=== PATIENT | female | born 1980 | race Caucasian/White ===

== ENCOUNTER 2016-11-01 10:18 | Observation (INO) | payer OTHER ==
--- NOTE | 2016-11-01 11:08 | CPEKG ---
Heart Rate: 111 RR Interval: 541 P-R Interval: 124 QRSD Interval: 92 QT Interval: 324 QTC Interval: 441 P [place]: 89 QRS [place]: 21 T Wave [place]: 42 EKG Severity - OTHERWISE NORMAL ECG - EKG Impression: SINUS TACHYCARDIA Electronically Signed By: Melchor Mcgregor 01-Nov-2016 13:09:12
[2016-11-01 11:32] LABS: % IMMATURE GRANULYOCYTES 0.3 % (0.0-1.1); ABSOLUTE IMMATURE GRANULOCYTES 0.02 10^3/uL (0.00-0.10); ADD DIFF? NO; ADD MORPH? NO; ADD SCAN? NO; ATYPICAL LYMPHOCYTE FLAG 10 (0-99); FRAGMENT RBC FLAG 0 (0-99); HEMATOCRIT 46.5 % (38.0-47.0); HEMOGLOBIN 15.6 g/dL (12.6-16.3); LEFT SHIFT FLG 0 (0-99); LIPEMIA HEMOLYSIS FLAG 80 (0-99); MEAN CELL HEMOGLOBIN 30.7 pg (27.9-34.1); MEAN CELL HEMOGLOBIN CONCENTR. 33.5 g/dL (32.4-36.7); MEAN CELL VOLUME 91.5 fL (81.5-99.8); MEAN PLATELET VOLUME 9.8 fL (8.7-11.7); PLATELET CLUMPS FLAG 0 (0-99); PLATELET COUNT 311 10^3/uL (150-400); RED BLOOD CELL COUNT 5.08 10^6/uL (4.18-5.33); RED CELL DISTRIBUTION WIDTH 12.5 % (11.5-15.2)
[2016-11-01 11:55] LABS: ANION GAP 21 mEq/L (8-16); CARBON DIOXIDE 12 mEq/l (22-31); CHLORIDE 106 mEq/L (97-110); CREATININE 0.7 mg/dL (0.6-1.0); GLOMERULAR FILTRATION RATE > 60; GLUCOSE 75 mg/dL (70-100); POTASSIUM 4.5 mEq/L (3.5-5.2); SODIUM 139 mEq/L (134-144)
[2016-11-01 12:06] LABS: TROPONIN I < 0.012 ng/mL (0.000-0.034)
[2016-11-01] MEDS ORDERED: NS 1,000 ML IV ONE ×2 (12:44→13:54)
--- NOTE | 2016-11-01 13:14 | EDPHY ---
H & P Time Seen by Provider: 11/01/16 12:15 HPI/ROS: CHIEF COMPLAINT: Burning in the chest HISTORY OF PRESENT ILLNESS: Started 90 minutes prior to my evaluation, radiates the left arm. Patient states she is feeling a little bit of associated weakness and dizziness. She has had decreased oral intake. Burning in her chest is mild and was worse earlier. It did not radiate to her back or her jaw. Not associated with weakness or numbness in extremities, difficulty with speech or balance, or vertigo. Not exertional. REVIEW OF SYSTEMS: Eye: no change in vision ENT: no sore throat Cardiac: HPI Pulmonary: no cough or SOB Abdomen: no vomiting, diarrhea, abdominal pain Musculoskeletal: Some mild ongoing back and neck pain which is stable Skin: no rash Neuro: no headache Constitutional: no fever : no urinary symptoms A comprehensive 10 point review of systems is otherwise negative aside from elements mentioned in the history of present illness. PAST MEDICAL HISTORY: Previous cervical and thoracic spine fusion surgeries, electric stimulator for gastroparesis. Knee surgery. C5-6, C6-7, T9-10, L4-5. Social history: Lives in [facility] and was on her way to [place] today, denies drugs or alcohol. General Appearance: Alert and conversant, cooperative. Eyes: No scleral icterus. ENT, Mouth: Normal mucous membranes. Respiratory: Normal respiratory effort, breath sounds equal, lungs are clear to auscultation. Cardiovascular: Regular rate and rhythm. Gastrointestinal: Abdomen is soft and non tender. Neurological: Alert and oriented x3. Normally conversant. Face symmetric, normal movement and sensation in all extremities. Skin: Warm and dry, no rashes. Musculoskeletal: No peripheral edema and no joint swelling. Psychiatric: Not agitated. Flat affect. Emergency Department course/MDM: 1350: Labs reviewed, patient denies aspirin, and negative ethanol. Unclear why she is acidotic. Remains tachycardic with heart rate 120 to 130. Plan for IV fluid resuscitation, admission to hospitalist for further evaluation of chest pain and lab abnormalities. No Percocet today. 1400: Jerrell Phelps. Smoking Status: Never smoked Constitutional: Initial Vital Signs Temperature (C) 36.7 C 11/01/16 10:25 Heart Rate 120 H 11/01/16 10:25 Respiratory Rate 16 11/01/16 10:25 Blood Pressure 132/80 H 11/01/16 10:25 O2 Sat (%) 98 11/01/16 10:25 O2 Delivery Mode Room Air Allergies/Adverse Reactions: amoxicillin Allergy (Mild, Verified 11/01/16 10:26) GI ketorolac tromethamine [From Toradol] Allergy (Verified 11/01/16 10:26) GI Penicillins Allergy (Verified 11/01/16 10:26) GI Home Medications: Medication Instructions Recorded Baclofen [Baclofen 20 mg (*)] 20 mg PO BID PRN 11/01/16 Diazepam [Valium 5 MG (*)] 5 mg PO BID PRN 11/01/16 oxyCODONE HCL/ACETAMINOPHEN 1 each PO BID PRN 11/01/16 [Percocet 10-325 mg Tablet] Medical Decision Making - Diagnostics EKG Interpretation: 12-lead EKG interpreted by me; official reading is in trace master. My interpretation is sinus rhythm without ischemic changes. Tachycardiac. Imaging Results: Imaging Impressions Chest X-Ray 11/01/16 12:44 Impression: Clear lungs. No acute process. Differential Diagnosis: Differential diagnosis considered for chest pain including but not limited to myocardial ischemia, aortic dissection, pericarditis, pulmonary embolus, chest wall pain, pleural inflammation and pulmonary infectious causes. - Data Points Laboratory Results: Laboratory Results 11/01/16 11:20 11/01/16 11:20 11/01/16 11/01/16 11/01/16 13:10 11:20 11:20 WBC RBC Hgb Hct MCV MCH MCHC RDW Plt Count MPV Neut % (Auto) Lymph % (Auto) [place] % (Auto) Eos % (Auto) Baso % (Auto) Nucleat RBC Rel Count Absolute Neuts (auto) Absolute Lymphs (auto) Absolute Monos (auto) Absolute Eos (auto) Absolute Basos (auto) Absolute Nucleated RBC Immature Gran % Immature Gran # D-Dimer < 0.27 ug/mLFEU ug/mLFEU (0.00-0.50) VBG pH 7.25 L (7.31-7.42) Sodium Potassium Chloride Carbon Dioxide Anion Gap BUN Creatinine Estimated GFR Glucose Calcium Troponin I Ethyl Alcohol < 10 mg/dL mg/dL (0-10) 11/01/16 11/01/16 11:20 11:20 WBC 6.55 10^3/uL 10^3/uL (3.80-9.50) RBC 5.08 10^6/uL 10^6/uL (4.18-5.33) Hgb 15.6 g/dL g/dL (12.6-16.3) Hct 46.5 % % (38.0-47.0) MCV 91.5 fL fL (81.5-99.8) MCH 30.7 pg pg (27.9-34.1) MCHC 33.5 g/dL g/dL (32.4-36.7) RDW 12.5 % % (11.5-15.2) Plt Count 311 10^3/uL 10^3/uL (150-400) MPV 9.8 fL fL (8.7-11.7) Neut % (Auto) 62.8 % % (39.3-74.2) Lymph % (Auto) 25.2 % % (15.0-45.0) [place] % (Auto) 10.8 % % (4.5-13.0) Eos % (Auto) 0.3 % L % (0.6-7.6) Baso % (Auto) 0.6 % % (0.3-1.7) Nucleat RBC Rel Count 0.0 % % (0.0-0.2) Absolute Neuts (auto) 4.11 10^3/uL 10^3/uL (1.70-6.50) Absolute Lymphs (auto) 1.65 10^3/uL 10^3/uL (1.00-3.00) Absolute Monos (auto) 0.71 10^3/uL 10^3/uL (0.30-0.80) Absolute Eos (auto) 0.02 10^3/uL L 10^3/uL (0.03-0.40) Absolute Basos (auto) 0.04 10^3/uL 10^3/uL (0.02-0.10) Absolute Nucleated RBC 0.00 10^3/uL 10^3/uL (0-0.01) Immature Gran % 0.3 % % (0.0-1.1) Immature Gran # 0.02 10^3/uL 10^3/uL (0.00-0.10) D-Dimer VBG pH Sodium 139 mEq/L mEq/L (134-144) Potassium 4.5 mEq/L mEq/L (3.5-5.2) Chloride 106 mEq/L mEq/L (97-110) Carbon Dioxide 12 mEq/l L mEq/l (22-31) Anion Gap 21 mEq/L H mEq/L (8-16) BUN 12 mg/dL mg/dL (7-23) Creatinine 0.7 mg/dL mg/dL (0.6-1.0) Estimated GFR > 60 Glucose 75 mg/dL mg/dL (70-100) Calcium 10.0 mg/dL mg/dL (8.5-10.4) Troponin I < 0.012 ng/mL ng/mL (0.000-0.034) Ethyl Alcohol Medications Given: Discontinued Medications Sodium Chloride (Ns) 1,000 mls @ 0 mls/hr IV EDNOW ONE; Wide Open PRN Reason: Protocol Stop: 11/01/16 12:45 Last Admin: 11/01/16 12:49 Dose: 1,000 mls Sodium Chloride (Ns) 1,000 mls @ 0 mls/hr IV EDNOW ONE; Wide Open PRN Reason: Protocol Stop: 11/01/16 13:55 Last Admin: 11/01/16 14:14 Dose: 1,000 mls Departure - Departure Disposition: [facility] Inpatient Acute Clinical Impression: Tachycardia Chest pain Qualifiers: Chest pain type: unspecified Qualified Code(s): R07.9 - Chest pain, unspecified Condition: Fair
[2016-11-01 13:18] LABS: ETHANOL SERUM < 10 mg/dL (0-10)
[2016-11-01] MEDS ORDERED: ACETAMINOPHEN 325 MG TAB PO PRN (14:43)
[2016-11-01] MEDS ORDERED: PROMETHAZINE HCL 25 MG/ML INJ IVP PRN (14:43)
[2016-11-01] MEDS ORDERED: LORazepam 0.5 MG TAB PO PRN (14:43)
[2016-11-01] MEDS ORDERED: ONDANSETRON DISINTEGRATING 4 MG TAB PO PRN (14:43)
[2016-11-01] MEDS ORDERED: oxyCODONE IR 5 MG TAB PO PRN ×2 (14:43→17:42)
[2016-11-01] MEDS ORDERED: ONDANSETRON 4 MG/2 ML VIAL IVP PRN (14:43)
[2016-11-01] MEDS ORDERED: BACLOFEN 20 MG TAB PO PRN (16:56)
[2016-11-01] MEDS ORDERED: NON-FORMULARY NEW DRUG (Oxycodone Hcl/Acetaminophen [Percocet 10-325 Mg Tablet] 1 EACH) PO PRN (16:56)
[2016-11-01] MEDS ORDERED: DIAZEPAM 5 MG TAB PO PRN (16:56)
--- NOTE | 2016-11-01 17:23 | ASMTCMCOM ---
CM Note CM Note Notes: chart reviewed. Spoke with CM in ER as patient has her pet in car. Patient reports she was driving from her home in [place] to [facility] to visist [facility] and changed her mind. She was heading back home when she began to have symptoms of chest pain leading her here. She has a flat affect and is inconsistent in her responses. Her friend from [place] came to see her in the ER but left. She called him but unclear as to when or how as her phone is lost. We contacted animal control and the [employer] ([phone]) where her pet halye be kept. She must be in communication with them (Jesenia said fees are attached for the dogs care and recovery but they are willing to work with her) within 5 days or they start adoption processes. CM to follow. Date Signed: 11/01/2016 05:22 PM Electronically Signed By:Jacquelin De La Torre RN
[2016-11-01] MEDS ORDERED: OXYCODONE/APAP 5/325 TAB PO PRN (17:41)
--- NOTE | 2016-11-01 17:50 | GHP ---
[f rep st] HISTORY AND PHYSICAL DATE OF ADMISSION: 11/01/2016 CHIEF COMPLAINT: Chest pain. HISTORY: This is a 36-year-old female, who has a past medical history of multiple cervical and thora cic spine fusions as well as chronic pain with continuous narcotic use and dependence, who presents w ith approximately 90 minutes of chest pain that began this morning. The patient is a somewhat challe nging historian in that she is very flat and guarded in conversation. She notes that this morning pa in began in her chest, it then radiated to her left arm, left neck and left leg. She notes again it lasted about 90 minutes and resolved on its own without any intervention. At this time, she states s he has no pain whatsoever. She notes she has had similar pains in the past but never quite this faisal re. She states this is due to an underlying heart arrhythmia, which she states is called IST. She s tates she was previously followed by a economics teacher but then the medications were no longer working s o she has not seen him in years. She also asks why she has been placed in the "psych carrero", though i t was explained to her that she is not in a psychiatric carrero but is actually in the medical care for workup of chest pain. She also acknowledges that she has had at least 2 stress tests in the past. S he states both of those were several years ago and were both normal. PAST MEDICAL HISTORY: Includes 1. Chronic pain with continuous narcotic use and dependency. 2. Gastroparesis. 3. Anxiety. PAST SURGICAL HISTORY: Include 1. Multiple level cervical and lumbar fusion surgeries. 2. Knee surgery. 3. Electrical stimulator for gastroparesis. FAMILY HISTORY: Father at age 69 of CHF. He also had hypertension, hyperlipidemia, and diabete s. Otherwise unremarkable. SOCIAL HISTORY: Patient is a nonsmoker. She denies any significant alcohol or drug use. REVIEW OF SYSTEMS: A 10-point review of systems obtained and negative, except as per HPI. MEDICATIONS: Include. 1. Percocet. 2. Valium. 3. Baclofen. ALLERGIES: Include penicillins. PHYSICAL EXAMINATION: VITAL SIGNS: 116/70, heart rate is 110, respiratory rate is 20, O2 sats 96% o n room air. Temperature is 36.8. GENERAL APPEARANCE: Well-developed/well-nourished female. She is awake and alert. She is anxious appearing. EYES: Anicteric. HENT: Oropharynx clear. CARDIOVASC ULAR: Tachycardic, regular, no MRG. PULMONARY: CTA bilaterally. ABDOMEN: Soft, nontender. Posit jaja bowel sounds. EXTREMITIES: No clubbing, cyanosis, or edema. SKIN: Warm dry well perfused. NE URO/PSYCH: Oriented and appropriate, pleasant. CLINICAL DATA: Labs reviewed. CBC is unremarkable. D-dimer is negative. Venous gas was 7.25, anio n gap of 21, bicarb of 12. Troponin negative. Blood alcohol level is negative. EKG personally reviewed and interpreted shows sinus tachycardia, no ischemic changes. Chest x-ray, p ersonally reviewed and interpreted, shows no acute process. ASSESSMENT/PLAN: This is a 36-year-old female, past medical history of anxiety and chronic pain pres enting with chest pain. 1. Chest pain. Again, this was brief and sounds to be atypical in nature. Query if related to anxi ety which she does clearly seem quite anxious on exam. She does remain tachycardic however. Plan wi ll be to monitor on telemetry with serial troponins. We will obtain a stress test in the morning and unless her tachycardia resolves, suspect she will need to be with Nuclear Medicine. 2. Tachycardia. Again patient states she has an arrhythmia that is called IST. I believe what she is referring to his inappropriate sinus tachycardia, which makes sense based on her presentation. At this point, again workup is as per above. We will continue to monitor. 3. Chronic pain, continuous narcotic use and dependency. We will continue her outpatient medication s. She currently has no further chest pain. 4. Gastroparesis. The patient with an implanted electrical stimulator. Query if this is related to her chronic narcotic use. DISPOSITION: Observation status. I suspect she will need less than 48 hours stay for evaluation and management of above. Patient is new to my care. Old records reviewed. Summary is as per HPI and past medical history. C are plan reviewed with ER physician, including plans for workup of chest pain. /[id number]/MODL
[2016-11-01 18:10] LABS: COLOR RED; LEUKOCYTE ESTERASE,URINE NEGATIVE (NEGATIVE); NITRITE,URINE NEGATIVE (NEGATIVE)
[2016-11-01 18:29] LABS: PHENCYCLIDINE URINE BCH < 6 ng/ml (NEGATIVE); PHENCYCLIDINE URINE BCH NEGATIVE (NEGATIVE); TETRAHYDROCANNABINOL URINE < 5 ng/mL (NEGATIVE); TETRAHYDROCANNABINOL URINE NEGATIVE (NEGATIVE)
[2016-11-01 18:54] LABS: BACTERIA 3+ /hpf (NONE SEEN); MUCUS 1+ /lpf (NONE-1+); RBC,URINE 50-182 /hpf (0-3); WBC,URINE 25-50 /hpf (0-3); YEAST PRESENT /hpf (NONE SEEN)
[2016-11-01] MEDS: NS 1,000 ML IV SCH (21:20)
[2016-11-02] MEDS: NS 1,000 ML IV SCH (04:00)
[2016-11-02 07:26] LABS: ANION GAP 13 mEq/L (8-16); CALCIUM 8.6 mg/dL (8.5-10.4); CARBON DIOXIDE 14 mEq/l (22-31); CHLORIDE 112 mEq/L (97-110); CREATININE 0.6 mg/dL (0.6-1.0); GLOMERULAR FILTRATION RATE > 60; GLUCOSE 71 mg/dL (70-100); POTASSIUM 3.8 mEq/L (3.5-5.2); SODIUM 139 mEq/L (134-144)
[2016-11-02 07:39] VITALS: TEMP 98.1
--- NOTE | 2016-11-02 08:58 | CPEKG ---
Heart Rate: 105 RR Interval: 571 P-R Interval: 108 QRSD Interval: 90 QT Interval: 336 QTC Interval: 445 P [place]: 79 QRS [place]: -1 T Wave [place]: 36 EKG Severity - OTHERWISE NORMAL ECG - EKG Impression: SINUS TACHYCARDIA Electronically Signed By: Jose Fortune 02-Nov-2016 11:21:57
[2016-11-02] MEDS ORDERED: REGADENOSON 0.4 MG/5 ML SYR IVP ONE (09:48)
--- NOTE | 2016-11-02 10:29 | PDCARST ---
CAR Stress Test Results Type of Stress Test: Nuclear TM stress test Indication: cp Description of Procedure: After informed consent was obtained, pt was exercised according to Eric Protocol. Monitoring was performed with standard stress brake tester electrode placement. Vital signs were monitored according to protocol throughout the procedure. STRESS EKG AND HEMODYNAMIC DATA. Exercise time: 5: 30 min. This is equivalent to: 6.6 METS. Resting heart rate: 107 bpm. Resting blood pressure: 110/76 mmHg. Resting O2 saturation: 94 %. Peak heart rate: 162 bpm. This is 88 % of age predicted maximum heart rate response. Peak blood pressure: 130/80 mmHg. Exercise O2: 100 %. Arrhythmias: None. Reason for termination: The test was stopped due to maximal effort. Symptoms: The patient experienced no typical symptoms of angina during stress or recovery. STRESS TEST ANALYSIS. Baseline ECG: Sinus tach/short ND. Stress ECG: Sinus tach. No exercise induced ischemic ECG changes. Rhythm: No arrhythmias noted during exercise and recovery. Blood pressure: normal blood pressure response to exercise. Exercise tolerance: The patient average exercise tolerance adjusted for age and gender. Symptoms: No exercise induced symptoms. Impression: Stress ECG negative for ischemia. The Giles Treadmill Score is 5 consistent with low cardiovascular risk (<1% annual mortality). Conclusion: Await nuclear images.
[2016-11-02 13:17] VITALS: BP 117/76; PULSE 112; RESP 20; O2SAT 100
--- NOTE | 2016-11-02 14:39 | ASDISCHSUM ---
Discharge Information Plan Status:Home with No Needs Medically Cleared to Leave: Discharge Date:11/02/2016 01:30 PM CM D/C Disposition:Home, Routine, Self-Care ADT D/C Disposition:Home, Routine, Self-Care Projected Discharge Date:11/02/2016 01:30 PM Transportation at D/C:Self Discharge Delay Reason: Follow-Up Date:11/02/2016 01:30 PM Discharge Slot: Final Diagnosis: Placement Information Patient Contact Information Contact Name:AIME Relationship:Friend Address: Work Phone: City: [facility] Phone: State/Zip Code: Email: Financial Information Financial Class: Primary Plan Desc:MEDICARE OUTPATIENT Primary Plan Number:[id number] Secondary Plan Desc:[facility] Secondary Plan Number:[id number] Assessment Information [facility] Progress Note CM Note CM Note Notes: chart reviewed. Spoke with CM in ER as patient has her pet in car. Patient reports she was driving from her home in [place] to [facility] to [facility] and changed her mind. She was heading back home when she began to have symptoms of chest pain leading her here. She has a flat affect and is inconsistent in her responses. Her friend from [place] came to see her in the ER but left. She called him but unclear as to when or how as her phone is lost. We contacted animal control and the [employer] ([phone]) where her pet haley be kept. She must be in communication with them (Jesenia said fees are attached for the dogs care and recovery but they are willing to work with her) within 5 days or they start adoption processes. CM to follow. Date Signed: 11/01/2016 05:22 PM Electronically Signed By:Jacquelin De La Torre RN Intervention Information
--- NOTE | 2016-11-03 05:02 | GDS ---
[f rep st] DISCHARGE SUMMARY DISCHARGE DIAGNOSIS: Noncardiac chest pain, probable anxiety. HISTORY: The patient is a 36-year-old female with cervical and thoracic spinal fusions with chronic pain and continuous narcotic use, who presents with 90 minutes of chest pain. She has had multiple s tress tests in the past. She was a challenging historian due to very flat affect and guarded convers ation. She was admitted to observation. Troponins and EKGs were unremarkable. She received another stress test, which was again negative. She is cleared to discharge home. She appears to be baselin e regarding her affect and was felt by nursing to be quite safe regarding caring for her personal aff airs, although I encouraged outpatient providers to consider further evaluation, especially since jonathan t she is having recurrent workups for likely anxiety-based symptoms. DISCHARGE MEDICATIONS: Please see computer record for full detailed list. No new medications given at the time of hospital discharge. ADDITIONAL DISCHARGE INSTRUCTIONS: Follow up with primary care. /[id number]/MODL
== END 2016-11-02 13:30 | disposition home or self-care (01) ==
LOC: INTOOBSV 14:00 → F2N 15:30
PROVIDERS: ADMIT Internal Medicine; ATTEND Internal Medicine
DX: R07.89 Other chest pain (principal); E86.9 Volume depletion, unspecified; Z98.1 Arthrodesis status
CPT/HCPCS: 71020; 78452; 93005; 93017; 96360; 96361; 99285; A9500; G0378; 80307; G0480; J2785